=== PATIENT | male | born 1990 | race African-American/Black ===

== ENCOUNTER 2017-03-08 18:13 | Emergency (ER) | payer SELFPAY ==
[2017-03-08 18:20] VITALS: BP 133/71; PULSE 97; TEMP 97.6; BMI 24.4
--- NOTE | 2017-03-08 18:21 | PDOC ---
Rapid Medical Evaluation Chief Complaint: Pain Time Seen by Provider: 03/08/17 18:17 Medical Evaluation: Allergies Allergy/AdvReac Type Severity Reaction Status Date / Time Penicillins Allergy Mild Hives Verified 03/08/17 18:15 03/08/17 18:18 Pt presents to the ED with complaints of: left inguinal pain worsening, no risks for DVT, denies testicular pain On brief exam: vss, shaun wrap to area , FROm but with discomfort with straight leg raise Pt ordered for: none Pt to proceed to the ED 03/08/17 18:19 Discharge Disposition - Diagnosis Musculoskeletal pain of left thigh - Discharge Dispostion Disposition: HOME Condition at time of disposition: Good - Prescriptions Prescriptions: Cyclobenzaprine HCl [Flexeril 10 mg] 10 mg PO TID PRN #12 tablet PRN Reason: Muscle Spasms Cyclobenzaprine HCl [Flexeril -] 10 mg PO TID #12 tablet - Referrals Referrals: Patricio Zurita MD [Primary Care Provider] - Call tomorrow - Patient Instructions Printed Discharge Instructions: How To Perform RICE (Rest, Ice, Compress, Elevate), DI for Leg Pain, DI for Musculoskeletal Pain Additional Instructions: Discharge Instructions: -Take prescribed muscle relaxer if needed; may cause drowsiness -Follow RICE instructions -Return to the ER if you experience testicular swelling or pain, coughing up blood, shortness of breath, chest pain or any other concerning symptoms. - Post Discharge Activity
--- NOTE | 2017-03-08 18:50 | PDOC ---
History of Present Illness - General Chief Complaint: Pain Stated Complaint: PAIN Time Seen by Provider: 03/08/17 18:17 History Source: Patient Exam Limitations: No Limitations - History of Present Illness Initial Comments: CHIEF COMPLAINT: 26 y/o afebrile male with no significant PMH c/o atraumatic left upper leg/thigh pain x 3 days. HISTORY OF PRESENT ILLNESS: The patient also admits he felt some pulling near his left testicle with movement of his left leg. He denies f/c, n/v/d, CP, SOB , cough, hemoptysis, abd pain, back pain, saddle anesthesia, numbness/tingling in LEs, testicular swelling/erythema/elevation, penile discharge. He has taken motrin and percocet for his pain with little relief. Pt denies recent travel, smoking history, calf pain, redness/swelling to affected extremity. Vital signs on arrival are within normal limits. REVIEW OF SYSTEMS: GENERAL/CONSTITUTIONAL: No fever/chills. No weakness. No weight change. GENITOURINARY: No dysuria, frequency, or change in urination. MUSCULOSKELETAL: +left thigh pain. No neck or back pain. SKIN: No rash or easy bruising. NEUROLOGIC: No headache, vertigo, loss of consciousness, or loss of sensation. PHYSICAL EXAM: VITAL_SIGNS: within normal limits GENERAL_APPEARANCE: alert, cooperative, mild obvious discomfort. Patient is ambulating with a limp MENTAL_STATUS: speech clear, oriented X 3, responds appropriately to questions. NEURO: motor intact and sensory intact in injured extremity. EXTREMITIES: Pain with palpation of left proximal, medial quad muscle, as well as with palpation of left inguinal region. Pain with flexion and extension of left leg. No left calf pain/redness/swelling. Negative chapis's sign left leg. SCROTUM: No testicular erythema, edema, elevation. No inguinal hernias appreciated. Presence of cremasteric reflex b/l. SKIN: warm, dry, good color. Past History - Past Medical History Allergies/Adverse Reactions: Allergies Allergy/AdvReac Type Severity Reaction Status Date / Time Penicillins Allergy Mild Hives Verified 03/08/17 18:15 Home Medications: Ambulatory Orders No Home Medications 0 dose .ROUTE UTDICT 07/19/13 Cyclobenzaprine HCl [Flexeril -] 10 mg PO TID #12 tablet 03/08/17 COPD: No Psychiatric Problems: Yes (ANXIETY) - Suicide/Smoking/Psychosocial Hx Smoking History: Never smoked Have you smoked in the past 12 months: No Information on smoking cessation initiated: No Hx Alcohol Use: No Drug/Substance Use Hx: No Substance Use Type: None *Physical Exam - Vital Signs Last Vital Signs Temp Pulse Resp BP Pulse Ox 97.6 F 97 H 18 133/71 100 03/08/17 18:15 03/08/17 18:15 03/08/17 18:15 03/08/17 18:15 03/08/17 18:15 Medical Decision Making - Medical Decision Making A/P: 26 y/o male with what appears to be a muscular pain in his left upper thigh. Suggested a scrotal ultrasound to r/o torsion but the patient refused as he has no symptoms. Will treat with IM toradol and PO flexeril. Suggested he ice and stretch affected area and return to the ER with any worsening or concerning symptoms immediately. The patient verbalizes understanding of all instructions, has no further questions and is awaiting discharge. *DC/Admit/Observation/Transfer Diagnosis at time of Disposition: Musculoskeletal pain of left thigh - Discharge Dispostion Disposition: HOME Condition at time of disposition: Good - Referrals Referrals: Patricio Zurita MD [Primary Care Provider] - Call tomorrow - Patient Instructions Printed Discharge Instructions: DI for Leg Pain, DI for Musculoskeletal Pain, How To Perform RICE (Rest, Ice, Compress, Elevate) Additional Instructions: Discharge Instructions: -Take prescribed muscle relaxer if needed; may cause drowsiness -Follow RICE instructions -Return to the ER if you experience testicular swelling or pain, coughing up blood, shortness of breath, chest pain or any other concerning symptoms. - Post Discharge Activity
[2017-03-08] MEDS ORDERED: IBUPROFEN 400 MG TABLET (FP) PO ONE ×2 (19:03→19:12)
[2017-03-08] MEDS ORDERED: CYCLOBENZAPRINE HCL 5 MG TABLET PO SCH (19:15)
[2017-03-08] MEDS ORDERED: KETOROLAC TROMETHAMINE 60 MG/2 ML VIAL ONE (19:36)
[2017-03-08] MEDS ORDERED: CYCLOBENZAPRINE HCL 10 MG TABLET (FP) ONE (19:36)
[2017-03-08] MEDS: KETOROLAC TROMETHAMINE 60 MG/2 ML VIAL IM ONE ×2 (19:45→19:47)
== END 2017-03-08 20:16 | disposition home or self-care (01) ==
LOC: JERFT 18:13
PROC: 3E0233Z Introduction of Anti-inflammatory into Muscle, Percutaneous Approach (ICD-10-PCS; principal; 2017-03-08)
DX: M79.652 Pain in left thigh (principal)
CPT/HCPCS: 99281-25

== ENCOUNTER 2018-01-05 11:08 | Inpatient (IN) | payer BC, OTHER ==
[2018-01-05 11:37] VITALS: BMI 24.5
--- NOTE | 2018-01-05 11:55 | PDOC ---
History of Present Illness - General Chief Complaint: Pain Stated Complaint: SENT BY PCP Time Seen by Provider: 01/05/18 11:54 History Source: Patient - History of Present Illness Initial Comments: 01/05/18 12:01 The patient is a 27 year old male who presents c/o abdominal pain. Pain started late evening and initially was diffuse but now has radiated down to his RLQ. Pain is sharp, constant, 10/10 and localized to his RLQ. Notes he had multiple episodes of NBNB vomiting night and Saturday morning and then was constipated. Patient took an enema Saturday and has had soft and watery bowel movements since that time. Denies any fevers/chills, dysuria/hematuria, testicular/penile pain. Patient was evaluated at [facility] urgent care this morning and instructed to come to the ED. Patient provided additional history that he ate a lot of Halloween candy (mostly chocolate [place]es) prior to symptom onset evening. Last PO intake was last night. 10 point ROS is negative including no chest pain, shortness of breath, numbness/ tingling, headache, sore throat, cough. Allergy: Penicillin Surgical: hemmhroid resection Social: denies cigarettes, social alcohol, denies recreational drugs PMD: Dr. Simeon Meds: Truvada (PREP) As per EMR patient was evaluated in our ED in 03/2017 with left thigh pain, likely muscular strain. Past History - Past Medical History Allergies/Adverse Reactions: Allergies Allergy/AdvReac Type Severity Reaction Status Date / Time Penicillins Allergy Mild Hives Verified 01/05/18 11:31 Home Medications: Ambulatory Orders Emtricitabine/Tenofovir [Truvada] 1 tab PO DAILY 01/05/18 COPD: No Psychiatric Problems: Yes (ANXIETY) - Suicide/Smoking/Psychosocial Hx Smoking History: Never smoked Have you smoked in the past 12 months: No Hx Alcohol Use: No Drug/Substance Use Hx: No Substance Use Type: None Review of Systems - Review of Systems Constitutional: No: Chills, Fever HEENTM: No: Blurred Vision, Double Vision Respiratory: No: Cough, Shortness of Breath Cardiac (ROS): No: Chest Pain, Lightheadedness, Palpitations, Syncope ABD/GI: Yes: Abdominal cramping. No: Constipated, Diarrhea, Nausea, Vomiting : No: Burning, Dysuria *Physical Exam - Vital Signs Last Vital Signs Temp Pulse Resp BP Pulse Ox 98.8 F 99 H 20 132/70 99 01/05/18 11:28 01/05/18 11:28 01/05/18 11:28 01/05/18 11:28 01/05/18 11:28 - Physical Exam General Appearance: Yes: Nourished, Appropriately Dressed HEENT: positive: Normal Voice, Hearing Grossly Normal Neck: positive: Normal Thyroid, Supple. negative: Lymphadenopathy (R), Lymphadenopathy (L) Respiratory/Chest: positive: Lungs Clear, Normal Breath Sounds. negative: Crackles, Wheezing Cardiovascular: positive: S1, S2. negative: Edema, JVD Vascular Pulses: Dorsalis-Pedis (R): 2+, Doralis-Pedis (L): 2+ Gastrointestinal/Abdominal: positive: Normal Bowel Sounds, Soft, Tenderness ( RLQ TTP - no rebound, guarding). negative: Guarding, Rebound, Hernia, Mass Musculoskeletal: negative: CVA Tenderness (R), CVA Tenderness (L) Extremity: positive: Normal Capillary Refill, Normal Inspection Integumentary: positive: Normal Color, Dry, Warm ED Treatment Course - LABORATORY CBC & Chemistry Diagram: 01/05/18 12:25 01/05/18 12:25 Medical Decision Making - Medical Decision Making 01/05/18 12:03 27 year old male with RLQ abdominal pain. Resolved N/V. H/o ingestion of large amount of Halloween candy intake. VS unremarkable. PE significant for RLQ TPP. Differential Diagnosis includes acute appendicitis, cholecystitis, biliary colic, colitis, less likely pancreatitis, SBO, mesenteric ischemia given patient's age and presentation. Will obtain basic labs, lipase, bedside U /S. IV hydration. Patient declining pain medication at this time. 01/05/18 12:59 Bedside U/S shows no cholelithiasis, normal sized CBD. Appendix not visualized. Will obtain CT abdomen to r/o acute appy vs. colitis 01/05/18 13:08 01/05/18 13:[address] pending 01/05/18 13:56 WBC 12.8 - likely reactive leukocytosis 01/05/18 14:11 Case d/w radiology. No cholecystitis/cholelithiasis- notable R flank inflammation, cannot delineate R colon; appendix poorly visualized. Concern for retrocecal inflammation vs. acute appendicitis w/overlying phlegmon. Recommends repeat CT with oral contrast to better visual appendix. 01/05/18 14:38 Case d/w patient, agrees to CT w/contrast. VSS 01/05/18 17:08 Patient @ [address] 01/05/18 19:[address] Symptomatically improved. CT read pending 01/05/18 21:10 CT w/PO contrast show shows thickened tubular aspect @ cecum -- possibly a thickened appendix/appendicitis +/- phelgom, adjacent enlarged lymph nodes. Patient and patient's mother @ bedside counseled on plan of care General Surgery, Dr. Jorgensen, paged. 01/05/18 22:56 Dr. Jorgensen @ bedside. Will admit patient for further evaluation. Likely to OR tomorrow. Patient admitted to Dr. Perea. *DC/Admit/Observation/Transfer Diagnosis at time of Disposition: Abdominal pain Qualifiers: Abdominal location: periumbilical Qualified Code(s): R10.33 - Periumbilical pain - Discharge Dispostion Disposition: HOME Condition at time of disposition: Good - Referrals - Patient Instructions - Post Discharge Activity
--- NOTE | 2018-01-05 12:24 | PDOC ---
Attending Attestation - Resident Resident Name: Jeannie Fragoso - ED Attending Attestation I have performed the following: I have examined & evaluated the patient, The case was reviewed & discussed with the resident, I agree w/resident's findings & plan, Exceptions are as noted <GregPura - Last Filed: 01/05/18 12:24> - HPI HPI: 01/05/18 12:34 The patient is a 27 year old male with no significant PMH who presents to the emergency department with sharp abdominal pain for the past three days. Patient states he ate significant candy the day prior to the onset of his abdominal pain. Patient reports he also vomited 4-5 times since then. Patient took an enema and then had 2 episodes of loose stools. The patient denies chest pain, shortness of breath, headache and dizziness. Denies fever, chills, nausea, diarrhea and constipation. Denies dysuria, frequency, urgency and hematuria. Allergies: NKA Past surgical history: None reported. Social history: No reported alcohol, drug or cigarette use. PCP: Dr. Zurita <Sharona Real - Last Filed: 01/05/18 12:34>
[2018-01-05] MEDS ORDERED: SODIUM CHLORIDE 0.9% 500 ML INFUS.BAG IV ONE ×2 (12:25→21:27)
[2018-01-05 12:41] LABS: BASO % 0.5 % (0-2.0); EOS % 0.1 % (0-4.5); HEMATOCRIT 41.5 % (35.4-49); HEMOGLOBIN 14.6 GM/dL (11.7-16.9); LYMPH % 9.3 % (8-40); MCH 32.2 pg (25.7-33.7); MCHC 35.3 g/dl (32.0-35.9); MEAN CELL VOLUME 91.3 fl (80-96); MEAN PLT VOLUME 6.8 fl (7.5-11.1); MONO % 8.5 % (3.8-10.2); NEUT % 81.6 % (42.8-82.8); PLATELET COUNT 260 K/MM3 (134-434); RBC 4.54 M/mm3 (4.00-5.60); RDW 13.8 % (11.9-15.9); WHITE BLOOD COUNT 12.8 K/mm3 (4.0-10.0)
[2018-01-05 13:03] LABS: ALBUMIN 3.7 g/dl (3.4-5.0); ALK PHOS 67 U/L (45-117); ANION GAP 8 MMOL/L (8-16); BILIRUBIN,TOTAL 1.6 mg/dL (0.2-1); BLOOD UREA NITROGEN 9 mg/dL (7-18); CALCIUM 9.2 mg/dL (8.5-10.1); CHLORIDE 100 mmol/L (98-107); CO2 28 mmol/L (21-32); CREATININE 0.8 mg/dL (0.55-1.3); GLUCOSE,RANDOM 100 mg/dL (74-106); LIPASE 71 U/L (73-393); POTASSIUM 3.6 mmol/L (3.5-5.1); SGOT/AST 17 U/L (15-37); SGPT/ALT 20 U/L (13-61); SODIUM 135 mmol/L (136-145); TOT PROT 8.2 g/dl (6.4-8.2)
[2018-01-05 19:22] LABS: URINE APPEARANCE CLEAR; URINE BILIRUBIN NEGATIVE (<2.0 mg/dL); URINE COLOR LTYELLOW; URINE GLUCOSE (UA) NEGATIVE (NEGATIVE); URINE KETONE 2+ (NEGATIVE); URINE LEUK ESTERASE NEGATIVE (NEGATIVE); URINE NITRITE NEGATIVE (NEGATIVE); URINE PROTEIN NEGATIVE (NEGATIVE); URINE UROBILINOGEN 4.0 E.U/dl mg/dL (0.2-1.0)
[2018-01-05 23:41] LABS: INR 1.23 (0.83-1.09); PROTHROMBIN TIME (PATIENT) 14.5 SEC (9.7-13.0)
[2018-01-05] MEDS ORDERED: D5-1/2NS+20 MEQ KCL - 20 MEQ/1,000 ML INFUS.BAG IV SCH (23:45)
--- NOTE | 2018-01-05 23:45 | CONSULT ---
Consult Consult Specialty:: General Surgery Referred by:: Jeannie Fragoso Reason for Consultation:: appendicitis - History of Present Illness Chief Complaint: abdominal pain, n/v, f/c History of Present Illness: 27yo generally healthy M began having vague abdominal discomfort and feeling somewhat unwell on midday after having a lot of Halloween candy/ chocolate. He didn't think much of it at first, and then had central abdominal pain, getting worse that afternoon, followed by N/V of undigested food. He also noted that he felt like he had to move his bowels, but then had difficulty doing so, and thought he was constipated. He had a normal soft BM morning. The pain got worse over night into Saturday, and he still felt constipated, so Saturday night used an OTC Fleet's enema, with some results and some improvement in the pain and discomfort. Saturday he only had some soup and seltzer, not as much appetite. He also felt hot and cold, feverish, and Saturday. By Saturday, he was able to eat more, and was starting to feel a bit better, and noticed the pain radiated a bit more toward the RLQ. He had a bit more diarrhea, but no more fevers. Last night, though, he could not find a comfortable position to sleep in, the pain had come back, and was severe enough to go to Urgent Care this morning, where he was sent to ER to r/o appendicitis. In ER, he is afebrile, with wbc 12.8 left-shifted, and Tbili 1.6. K slightly low. CT was initially done with IV but no PO contrast, and showed inflammatory changes at the cecum but no clearly visualized enlarged appendix. It was repeated with PO but no IV contrast, showing cecal inflammation, some free fluid , and likely enlarged/inflamed appendix as well, possibly perforated, with phlegmon but no drainable abscess or free air. He is hungry, and ate a turkey sandwich between CT scans. Surgery was asked to assess. He is seen and examined in ER holding area with mother present. He indicates his pain is better right now, but still present, mostly RLQ. Had a soft/loose BM today. He expressed concern about his job obligations and being in the hospital, but also understands that leaving the hospital prior to discharge would be against medical advice. He has taken Tylenol several times over the last few days for the pain, with some effect. He has had IV fluids and no antibiotics yet. NPO from about 7:30pm. - History Source History Provided By: Patient Limitations to Obtaining History: No Limitations - Past Medical History Infectious Disease: Yes: STD's (anal condylomata) - Past Surgical History Past Surgical History: Yes: Upper Endoscopy Additional Surgical History: removal anyl condylomata - Alcohol/Substance Use Hx Alcohol Use: Yes (social) History of Substance Use: reports: None - Smoking History Smoking history: Never smoked Have you smoked in the past 12 months: No - Social History ADL: Independent Occupation: works for [employer] Home Medications - Allergies Allergies/Adverse Reactions: Allergies Allergy/AdvReac Type Severity Reaction Status Date / Time Penicillins Allergy Mild Hives Verified 01/05/18 11:31 - Home Medications Home Medications: Ambulatory Orders Emtricitabine/Tenofovir [Truvada] 1 tab PO DAILY 01/05/18 Family Disease History - Family Disease History Family History: Unremarkable (noncontributory) Review of Systems - Review of Systems Constitutional: reports: Chills (/Sat), Fever (/Sat), Loss of Appetite (Saturday) Eyes: reports: Other (wears contact lenses and sometimes glasses). denies: Recent Change in Vision HENT: reports: Nasal Congestion (some, with postnasal drip). denies: Difficult Swallowing, Throat Pain Neck: denies: Swollen Glands, Tenderness Cardiovascular: denies: Chest Pain, Palpitations Respiratory: denies: Cough, SOB Gastrointestinal: reports: Abdominal Pain (with hpi), Constipation (with hpi), Nausea (with hpi), Vomiting (with hpi). denies: Diarrhea, Rectal Bleeding, Vomiting Blood Genitourinary: denies: Burning, Dysuria Musculoskeletal: denies: Back Pain, Joint Pain, Muscle Pain Integumentary: denies: Change in Color, Rash Neurological: denies: Dizziness, Headache, Unsteady Gait Hematology/Lymphatic: denies: Easily Bruised, Excessive Bleeding Psychiatric: denies: Anxiety, Depression Physical Exam Vital Signs: Vital Signs Temperature 98.8 F 01/05/18 11:28 Pulse Rate 99 H 01/05/18 11:28 Respiratory Rate 20 01/05/18 11:28 Blood Pressure 132/70 01/05/18 11:28 O2 Sat by Pulse Oximetry (%) 99 01/05/18 11:28 Constitutional: Yes: Well Nourished, No Distress, Calm Eyes: Yes: Conjunctiva Clear, EOM Intact HENT: Yes: Atraumatic, Normocephalic Neck: Yes: Supple, Trachea Midline Cardiovascular: Yes: Regular Rate and Rhythm, Tachycardia (slight) Respiratory: Yes: Regular, CTA Bilaterally Gastrointestinal: Yes: Normal Bowel Sounds, Soft, Tenderness (RLQ and laterally to R side, much less RUQ). No: Distention, Tenderness, Epigastrium ...Rectal Exam: Yes: Deferred Renal/: No: CVA Tenderness - Left, CVA Tenderness - Right Musculoskeletal: No: Joint Stiffness, Joint Swelling Extremities: No: Cool, Cyanosis Edema: No Peripheral Pulses WNL: Yes Integumentary: Yes: Tattoos. No: Jaundice, Rash Neurological: Yes: Alert, Oriented. No: Unsteady Gait Psychiatric: Yes: Alert, Oriented Labs: CBC, BMP 01/05/18 12:25 01/05/18 12:25 CMP Sodium 135 mmol/L (136-145) L 01/05/18 12:25 Potassium 3.6 mmol/L (3.5-5.1) 01/05/18 12:25 Chloride 100 mmol/L (98-107) 01/05/18 12:25 Carbon Dioxide 28 mmol/L (21-32) 01/05/18 12:25 Anion Gap 8 MMOL/L (8-16) 01/05/18 12:25 BUN 9 mg/dL (7-18) 01/05/18 12:25 Creatinine 0.8 mg/dL (0.55-1.3) 01/05/18 12:25 Creat Clearance w eGFR > 60 (>60) 01/05/18 12:25 Random Glucose 100 mg/dL (74-106) 01/05/18 12:25 Calcium 9.2 mg/dL (8.5-10.1) 01/05/18 12:25 Total Bilirubin 1.6 mg/dL (0.2-1) H 01/05/18 12:25 AST 17 U/L (15-37) 01/05/18 12:25 ALT 20 U/L (13-61) 01/05/18 12:25 Alkaline Phosphatase 67 U/L (45-117) 01/05/18 12:25 Total Protein 8.2 g/dl (6.4-8.2) 01/05/18 12:25 Albumin 3.7 g/dl (3.4-5.0) 01/05/18 12:25 Lipase 71 U/L (73-393) L 01/05/18 12:25 INR, PTT INR 1.23 (0.83-1.09) H 01/05/18 23:00 Urine Test Results Urine Color Ltyellow 01/05/18 19:15 Urine Appearance Clear 01/05/18 19:15 Urine pH 6.0 (5.0-8.0) 01/05/18 19:15 Ur Specific [place] 1.021 (1.010-1.035) 01/05/18 19:15 Urine Protein Negative (NEGATIVE) 01/05/18 19:15 Urine Glucose (UA) Negative (NEGATIVE) 01/05/18 19:15 Urine Ketones 2+ (NEGATIVE) H 01/05/18 19:15 Urine Blood Negative (NEGATIVE) 01/05/18 19:15 Urine Nitrite Negative (NEGATIVE) 01/05/18 19:15 Urine Bilirubin Negative (<2.0 mg/dL) 01/05/18 19:15 Ur Leukocyte Esterase Negative (NEGATIVE) 01/05/18 19:15 Imaging - Results Cat Scan: Report Reviewed, Image Reviewed (images from both CT's reviewed - significant inflammation of cecum with phlegmon, small free fluid, possible enlarged appendix adjacent, difficult to distinguish, no obstruction, no free air, no abel abscess) Problem List - Problems (1) Acute appendicitis with perforation and localized peritonitis, without abscess Assessment/Plan: admitted to medicine NPO/IVF except truvada with sips pain meds prn, nonnarcotics first line IV abx per ID, Levo/Flagyl per Dr. Zurita trend labs serial exams pending clinical course, may need to reimage in few days with po/iv contrast if improving, would plan to resume po when pain/tenderness are gone and complete abx course at home if not improving or deteriorating, would reimage as above - perc drainage if organized abscess develops, consider operative intervention if indicated otherwise explained to pt and mother that he would likely be at least 48-72 hrs in hospital discussed with Dr. Zurita and Dr. Perea Code(s): K35.32 - ACUTE APPENDICITIS WITH PERF AND LOC PERITONITIS, W/O ABSCS Qualifiers: Appendicitis gangrene presence: unspecified whether gangrene present Qualified Code(s): K35.32 - Acute appendicitis with perforation and localized peritonitis, without abscess (2) RLQ abdominal pain Code(s): R10.31 - RIGHT LOWER QUADRANT PAIN (3) Nausea and vomiting Code(s): R11.2 - NAUSEA WITH VOMITING, UNSPECIFIED Qualifiers: Vomiting type: unspecified Vomiting Intractability: non-intractable Qualified Code(s): R11.2 - Nausea with vomiting, unspecified (4) Other elevated white blood cell count Code(s): D72.828 - OTHER ELEVATED WHITE BLOOD CELL COUNT
[2018-01-05] MEDS ORDERED: ACETAMINOPHEN 1000 MG/100 ML VIAL (NON FORMULARY) IVPB PRN (23:48)
[2018-01-05] MEDS ORDERED: MORPHINE SULFATE 2 MG/ML VIAL IVPUSH PRN (23:48)
--- NOTE | 2018-01-06 00:08 | HP ---
Admitting History and Physical - Admission History of Present Illness: The patient is a 27 year old male with no significant PMH who presents to the emergency department with sharp abdominal pain for the past three days. Patient states he ate significant candy the day prior to the onset of his abdominal pain. Patient reports he also vomited 4-5 times since then. Patient took an enema and then had 2 episodes of loose stools. The patient denies chest pain, shortness of breath, headache and dizziness. Denies fever, chills, nausea, diarrhea and constipation. Denies dysuria, frequency, urgency and hematuria. History Source: Patient, Medical Record Limitations to Obtaining History: No Limitations - Past Medical History Infectious Disease: Yes: STD's (anal condylomata) - Past Surgical History Past Surgical History: Yes: Upper Endoscopy - Smoking History Smoking history: Never smoked Have you smoked in the past 12 months: No - Alcohol/Substance Use Hx Alcohol Use: Yes (social) History of Substance Use: reports: None - Social History ADL: Independent Occupation: works for [employer] Home Medications - Allergies Allergies/Adverse Reactions: Allergies Allergy/AdvReac Type Severity Reaction Status Date / Time Penicillins Allergy Mild Hives Verified 01/05/18 11:31 - Home Medications Home Medications: Ambulatory Orders Emtricitabine/Tenofovir [Truvada] 1 tab PO DAILY 01/05/18 Review of Systems - Review of Systems Constitutional: reports: Malaise HENT: reports: No Symptoms Neck: reports: No Symptoms Cardiovascular: reports: No Symptoms Gastrointestinal: reports: Abdominal Pain, Indigestion, Vomiting. denies: Rectal Bleeding Genitourinary: reports: No Symptoms Breasts: reports: No Symptoms Reported Musculoskeletal: reports: No Symptoms Integumentary: reports: No Symptoms Neurological: reports: No Symptoms Endocrine: reports: No Symptoms Hematology/Lymphatic: reports: No Symptoms Psychiatric: reports: No Symptoms Physical Examination Vital Signs: Vital Signs Temperature 98.8 F 01/05/18 11:28 Pulse Rate 99 H 01/05/18 11:28 Respiratory Rate 20 01/05/18 11:28 Blood Pressure 132/70 01/05/18 11:28 O2 Sat by Pulse Oximetry (%) 99 01/05/18 11:28 Labs: CBC, BMP 01/05/18 12:25 01/05/18 12:25 Problem List - Problems (1) Abdominal pain Code(s): R10.9 - UNSPECIFIED ABDOMINAL PAIN Qualifiers: Abdominal location: periumbilical Qualified Code(s): R10.33 - Periumbilical pain
[2018-01-06 06:12] LABS: BASO % 0.4 % (0-2.0); EOS % 0.7 % (0-4.5); HEMATOCRIT 37.9 % (35.4-49); HEMOGLOBIN 13.3 GM/dL (11.7-16.9); LYMPH % 15.6 % (8-40); MCH 32.2 pg (25.7-33.7); MEAN CELL VOLUME 91.8 fl (80-96); MONO % 10.4 % (3.8-10.2); NEUT % 72.9 % (42.8-82.8); PLATELET COUNT 248 K/MM3 (134-434); RBC 4.13 M/mm3 (4.00-5.60); RDW 13.8 % (11.9-15.9); WHITE BLOOD COUNT 9.4 K/mm3 (4.0-10.0)
[2018-01-06 06:37] LABS: ANION GAP 7 MMOL/L (8-16); BLOOD UREA NITROGEN 7 mg/dL (7-18); CALCIUM 8.1 mg/dL (8.5-10.1); CHLORIDE 104 mmol/L (98-107); CO2 28 mmol/L (21-32); CREATININE 0.7 mg/dL (0.55-1.3); GLUCOSE,RANDOM 115 mg/dL (74-106); MAGNESIUM 2.4 mg/dL (1.8-2.4); POTASSIUM 3.7 mmol/L (3.5-5.1); SODIUM 139 mmol/L (136-145)
--- NOTE | 2018-01-06 13:01 | PN ---
Progress Note, Physician History of Present Illness: Pt with perforated appendicitis with phlegmon but no drainable abscess. Started IV antibiotics last night, NPO/IVF except ok for Truvada to continue. Levo/ Flagyl per Dr. Zurita, ID secondary to PCN allergy. WBC down today, pain is less. Has not needed pain meds. Having BMs, loose from enteral contrast yesterday. No nausea, no fever. - Current Medication List Current Medications: Active Medications Acetaminophen (Ofirmev Injection -) 1,000 mg IVPB Q6H PRN PRN Reason: Pain Level 4 - 10 Potassium Chloride/Dextrose/Sod Cl (D5-1/2ns+20 Meq Kcl -) 20 meq in 1,000 mls @ 125 mls/hr IV ASDIR RANDALL Last Admin: 01/06/18 01:02 Dose: 125 mls/hr Metronidazole (Flagyl 500mg Premixed Ivpb -) 500 mg in 100 mls @ 100 mls/hr IVPB Q8H-IV RANDALL Last Admin: 01/06/18 10:10 Dose: 100 mls/hr Morphine Sulfate (Morphine Sulfate) 2 mg IVPUSH Q4H PRN PRN Reason: Pain Level 8 - 10 BREAKTHROUGH - Objective Vital Signs: Vital Signs Temperature 98.4 F 01/06/18 11:58 Pulse Rate 82 01/06/18 11:58 Respiratory Rate 16 01/06/18 11:58 Blood Pressure 108/52 L 01/06/18 11:58 O2 Sat by Pulse Oximetry (%) 100 01/06/18 11:58 Vital Signs Period Temp Pulse Resp BP Sys/Ho Pulse Ox Last 24 Hr 98.4 F-98.4 F 78-82 16-16 108-125/52-74 98-100 Constitutional: Yes: Well Nourished, No Distress, Calm Eyes: Yes: Conjunctiva Clear, EOM Intact HENT: Yes: Atraumatic, Normocephalic Gastrointestinal: Yes: Soft, Tenderness (less in RLQ, R flank/lateral, no R/G). No: Distention ...Rectal Exam: Yes: Deferred Musculoskeletal: No: Joint Stiffness, Joint Swelling Extremities: No: Cool, Cyanosis Integumentary: Yes: Tattoos. No: Jaundice, Rash Neurological: Yes: Alert, Oriented Labs: CBC, BMP 01/06/18 06:00 11/05/18 06:00 wbc down from 12.8 Problem List - Problems (1) Acute appendicitis with perforation and localized peritonitis, without abscess Assessment/Plan: admitted to medicine NPO/IVF except truvada with sips pain meds prn, nonnarcotics first line IV abx per ID, Levo/Flagyl per Dr. Zurita - ordered 500mg daily/500mg tid trend labs serial exams pending clinical course, may need to reimage in few days with po/iv contrast if improving after 48 hrs IV abx at least, would plan to resume po when pain/ tenderness are gone and complete abx course at home if not improving or deteriorating, would reimage as above - perc drainage if organized abscess develops, consider operative intervention if indicated otherwise discussed with Dr. Perea Code(s): K35.32 - ACUTE APPENDICITIS WITH PERF AND LOC PERITONITIS, W/O ABSCS Qualifiers: Appendicitis gangrene presence: unspecified whether gangrene present Qualified Code(s): K35.32 - Acute appendicitis with perforation and localized peritonitis, without abscess (2) RLQ abdominal pain Assessment/Plan: improving Code(s): R10.31 - RIGHT LOWER QUADRANT PAIN (3) Nausea and vomiting Assessment/Plan: resolved Code(s): R11.2 - NAUSEA WITH VOMITING, UNSPECIFIED Qualifiers: Vomiting type: unspecified Vomiting Intractability: non-intractable Qualified Code(s): R11.2 - Nausea with vomiting, unspecified (4) Other elevated white blood cell count Assessment/Plan: decreased Code(s): D72.828 - OTHER ELEVATED WHITE BLOOD CELL COUNT
--- NOTE | 2018-01-06 17:29 | PN ---
Progress Note (short form) - Note Progress Note: patient seen and examined in ER holding area Has remained NPO clinically appears comfortable - no distress + hungry / abdominal pain has resolved / + BM Vital Signs Period Temp Pulse Resp BP Sys/Ho Pulse Ox Last 24 Hr 98.4 F-99.6 F 74-82 16-18 107-125/52-74 98-100 lungs clear bilat abd soft / BS + / guarding on right lower flank ++ fullness with tenderness palpable ext no edema / FROM / + 2 pulses CBC, BMP 01/06/18 06:00 01/06/18 06:00 Active Medications Acetaminophen (Ofirmev Injection -) 1,000 mg IVPB Q6H PRN PRN Reason: Pain Level 4 - 10 Emtricitabine/Tenofovir (Truvada) 1 tab PO DAILY RANDALL Potassium Chloride/Dextrose/Sod Cl (D5-1/2ns+20 Meq Kcl -) 20 meq in 1,000 mls @ 125 mls/hr IV ASDIR RANDALL Last Admin: 01/06/18 01:02 Dose: 125 mls/hr Metronidazole (Flagyl 500mg Premixed Ivpb -) 500 mg in 100 mls @ 100 mls/hr IVPB Q8H-IV RANDALL Last Admin: 01/06/18 10:10 Dose: 100 mls/hr Levofloxacin (Levaquin 500 Mg Premixed Ivpb -) 500 mg in 100 mls @ 100 mls/hr IVPB DAILY RANDALL; Protocol Morphine Sulfate (Morphine Sulfate) 2 mg IVPUSH Q4H PRN PRN Reason: Pain Level 8 - 10 BREAKTHROUGH # abdominal pain unable to exclude appendicitis await surgical follow up continue NPO / IV abx would benefit from follow up CT #Continue home meds Problem List - Problems (1) Abdominal pain Code(s): R10.9 - UNSPECIFIED ABDOMINAL PAIN Qualifiers: Abdominal location: periumbilical Qualified Code(s): R10.33 - Periumbilical pain
[2018-01-06] MEDS: D5-1/2NS+20 MEQ KCL - 20 MEQ/1,000 ML INFUS.BAG IV SCH (17:36)
[2018-01-07] MEDS: D5-1/2NS+20 MEQ KCL - 20 MEQ/1,000 ML INFUS.BAG IV SCH ×2 (02:13→13:19)
--- NOTE | 2018-01-07 08:25 | CON.ID ---
Consult Consult Specialty:: Infectious Diseases Reason for Consultation:: Antibiotic Recommendations - History of Present Illness Chief Complaint: Abdominal Pain History of Present Illness: The patient is a 27 year old male who presents c/o abdominal pain. Pain started late evening and initially was diffuse but now has radiated down to his RLQ. Pain is sharp, constant, 10/10 and localized to his RLQ. Notes he had multiple episodes of NBNB vomiting night and Saturday morning and then was constipated. Patient took an enema Saturday and has had soft and watery bowel movements since that time. Denies any fevers/chills, dysuria/hematuria, testicular/penile pain. Patient was evaluated at [facility] urgent care this morning and instructed to come to the ED. In the ED, noted with mild leukocytosis, w/up including CT Scan A/P (oral contrast) showed cecal inflammation. Surgery evaluation noted. - History Source History Provided By: Patient Limitations to Obtaining History: No Limitations - Past Medical History Infectious Disease: Yes: STD's (anal condylomata) Additional Medical History: on PrEP (Truvada) - Past Surgical History Past Surgical History: Yes: Upper Endoscopy Additional Surgical History: removal anal condylomata - Alcohol/Substance Use Hx Alcohol Use: No History of Substance Use: reports: None - Smoking History Smoking history: Never smoked Have you smoked in the past 12 months: No - Social History ADL: Independent Occupation: works for [employer] Home Medications - Allergies Allergies/Adverse Reactions: Allergies Allergy/AdvReac Type Severity Reaction Status Date / Time Penicillins Allergy Mild Hives Verified 01/05/18 11:31 - Home Medications Home Medications: Ambulatory Orders Emtricitabine/Tenofovir [Truvada] 1 tab PO DAILY 01/05/18 Review of Systems - Review of Systems Constitutional: denies: Chills, Fever HENT: denies: Difficult Swallowing Cardiovascular: denies: Chest Pain, Palpitations Respiratory: denies: Cough, SOB Gastrointestinal: reports: Abdominal Pain, Bloating Physical Exam Vital Signs: Vital Signs Temperature 97.9 F 01/07/18 05:00 Pulse Rate 78 01/07/18 05:00 Respiratory Rate 20 01/07/18 05:00 Blood Pressure 136/62 01/07/18 05:00 O2 Sat by Pulse Oximetry (%) 100 01/06/18 21:00 Constitutional: Yes: Well Nourished, No Distress, Calm Eyes: Yes: Conjunctiva Clear HENT: Yes: Atraumatic Neck: Yes: Supple Cardiovascular: Yes: Regular Rate and Rhythm Respiratory: Yes: Regular, CTA Bilaterally Gastrointestinal: Yes: Normal Bowel Sounds, Soft, Tenderness, Tenderness, Rebound ...Rectal Exam: Yes: Deferred Labs: CBC, BMP 01/06/18 06:00 01/06/18 06:00 Imaging - Results Chest X-ray: Report Reviewed Cat Scan: Report Reviewed, Image Reviewed Assessment/Plan Abdominal Pain Appendicitis - Perforated without abscess PCN Allergy Rx Levaquin 500 mg QD Metronidazole 500 mg IV Q [address] Scan Surgical intervention may be needed based on repeat CT.
[2018-01-07 08:43] LABS: INR 1.28 (0.83-1.09); PROTHROMBIN TIME (PATIENT) 15.2 SEC (9.7-13.0)
[2018-01-07] MEDS ORDERED: PT OWN MED DRAWER 7, Y5N ONE ×2 (09:10→21:14)
[2018-01-07 09:53] LABS: BASO % 0.4 % (0-2.0); EOS % 1.6 % (0-4.5); HEMATOCRIT 36.9 % (35.4-49); HEMOGLOBIN 12.9 GM/dL (11.7-16.9); LYMPH % 17.1 % (8-40); MCH 32.1 pg (25.7-33.7); MCHC 34.9 g/dl (32.0-35.9); MEAN CELL VOLUME 91.9 fl (80-96); MEAN PLT VOLUME 7.6 fl (7.5-11.1); MONO % 10.6 % (3.8-10.2); NEUT % 70.3 % (42.8-82.8); PLATELET COUNT 274 K/MM3 (134-434); RBC 4.02 M/mm3 (4.00-5.60); RDW 13.3 % (11.9-15.9)
[2018-01-07] MEDS ORDERED: [UNRECOGNIZED DRUG - OTHER] PO SCH (10:00)
[2018-01-07] MEDS ORDERED: EMTRICITABINE PO SCH (10:00)
[2018-01-07 10:01] LABS: ANION GAP 6 MMOL/L (8-16); BLOOD UREA NITROGEN 5 mg/dL (7-18); CALCIUM 8.5 mg/dL (8.5-10.1); CHLORIDE 105 mmol/L (98-107); CO2 25 mmol/L (21-32); CREATININE 0.7 mg/dL (0.55-1.3); GLUCOSE,RANDOM 125 mg/dL (74-106); MAGNESIUM 2.1 mg/dL (1.8-2.4); POTASSIUM 4.2 mmol/L (3.5-5.1); SODIUM 136 mmol/L (136-145)
[2018-01-07 11:56] LABS: ANISOCYTOSIS 0; MACROCYTOSIS 0; PLATELET ESTIMATE NORMAL
--- NOTE | 2018-01-07 12:06 | PN ---
Progress Note (short form) - Note Progress Note: patient seen and examined in ER holding area Has remained NPO clinically appears comfortable - no distress + hungry / abdominal pain has resolved / + BM -- reprts as brown and "back to normal" denies fever / chills Vital Signs Period Temp Pulse Resp BP Sys/Ho Pulse Ox Last 24 Hr 97.9 F-99.6 F 67-79 18-20 104-136/58-67 100-100 lungs clear bilat abd soft / BS + / guarding on right lower flank ++ fullness with tenderness palpable ext no edema / FROM / + 2 pulses CBC, BMP 01/07/18 06:10 01/07/18 06:10 CBC, BMP 01/06/18 06:00 01/06/18 06:00 Active Medications Acetaminophen (Ofirmev Injection -) 1,000 mg IVPB Q6H PRN PRN Reason: Pain Level 4 - 10 Emtricitabine/Tenofovir (Truvada) 1 tab PO DAILY RANDALL Last Admin: 01/07/18 09:53 Dose: Not Given Metronidazole (Flagyl 500mg Premixed Ivpb -) 500 mg in 100 mls @ 100 mls/hr IVPB Q8H-IV RANDALL Last Admin: 01/07/18 09:52 Dose: 100 mls/hr Levofloxacin (Levaquin 500 Mg Premixed Ivpb -) 500 mg in 100 mls @ 100 mls/hr IVPB DAILY RANDALL; Protocol Last Admin: 01/07/18 09:52 Dose: 100 mls/hr Potassium Chloride/Dextrose/Sod Cl (D5-1/2ns+20 Meq Kcl -) 20 meq in 1,000 mls @ 150 mls/hr IV ASDIR RANDALL Last Admin: 01/07/18 02:13 Dose: 150 mls/hr Morphine Sulfate (Morphine Sulfate) 2 mg IVPUSH Q4H PRN PRN Reason: Pain Level 8 - 10 BREAKTHROUGH # abdominal pain unable to exclude appendicitis await surgical follow up continue NPO / IV abx CT today # HIV Continue home meds PO meds with sips of water Problem List - Problems (1) Abdominal pain Code(s): R10.9 - UNSPECIFIED ABDOMINAL PAIN Qualifiers: Abdominal location: periumbilical Qualified Code(s): R10.33 - Periumbilical pain
[2018-01-07] MEDS ORDERED: ONDANSETRON 4 MG/2 ML VIAL IVPUSH ONE (15:03)
--- NOTE | 2018-01-07 15:11 | PN ---
Progress Note, Physician History of Present Illness: Pt with perforated appendicitis with phlegmon but no drainable abscess. Started IV antibiotics almost 48 hrs ago, NPO/IVF except ok for Truvada to continue. Levo/Flagyl per Dr. Zurita, ID secondary to PCN allergy. WBC down to normal. Pain not worse, but more sore and uncomfortable in right flank/back today than yesterday, has not needed pain meds. Having BMs, still loose from enteral contrast. No fever, but some nausea today. [place] better yesterday overall. Not sleeping well. Would like to leave tonight if able to per surg and ID. - Current Medication List Current Medications: Active Medications Acetaminophen (Ofirmev Injection -) 1,000 mg IVPB Q6H PRN PRN Reason: Pain Level 4 - 10 Emtricitabine/Tenofovir (Truvada) 1 tab PO DAILY RANDALL Last Admin: 01/07/18 09:53 Dose: Not Given Metronidazole (Flagyl 500mg Premixed Ivpb -) 500 mg in 100 mls @ 100 mls/hr IVPB Q8H-IV RANDALL Last Admin: 01/07/18 09:52 Dose: 100 mls/hr Levofloxacin (Levaquin 500 Mg Premixed Ivpb -) 500 mg in 100 mls @ 100 mls/hr IVPB DAILY RANDALL; Protocol Last Admin: 01/07/18 09:52 Dose: 100 mls/hr Potassium Chloride/Dextrose/Sod Cl (D5-1/2ns+20 Meq Kcl -) 20 meq in 1,000 mls @ 150 mls/hr IV ASDIR RANDALL Last Admin: 01/07/18 13:19 Dose: 150 mls/hr Morphine Sulfate (Morphine Sulfate) 2 mg IVPUSH Q4H PRN PRN Reason: Pain Level 8 - 10 BREAKTHROUGH Ondansetron HCl (Zofran Injection) 4 mg IVPUSH ONCE ONE Stop: 01/07/18 15:04 - Objective Vital Signs: Vital Signs Temperature 98.2 F 01/07/18 13:30 Pulse Rate 79 01/07/18 13:30 Respiratory Rate 20 01/07/18 13:30 Blood Pressure 113/60 01/07/18 13:30 O2 Sat by Pulse Oximetry (%) 100 01/07/18 09:00 Constitutional: Yes: Well Nourished, No Distress, Calm Eyes: Yes: Conjunctiva Clear, EOM Intact HENT: Yes: Atraumatic, Normocephalic Gastrointestinal: Yes: Soft, Tenderness (mild/minimal RLQ/flank/side with mild fullness, better than Saturday, slightly more posterior than yesterday). No: Distention, Tenderness, Epigastrium, Tenderness, Rebound ...Rectal Exam: Yes: Deferred Musculoskeletal: No: Joint Stiffness, Joint Swelling Extremities: No: Cool, Cyanosis Integumentary: Yes: Tattoos. No: Jaundice, Rash Neurological: Yes: Alert, Oriented Labs: CBC, BMP 01/07/18 06:10 01/07/18 06:10 INR, PTT INR 1.28 (0.83-1.09) H 01/07/18 06:10 wbc down to normal lytes ok well hydrated - ....Imaging Cat Scan: Pending Problem List - Problems (1) Acute appendicitis with perforation and localized peritonitis, without abscess Assessment/Plan: feeling less well than yesterday, though pain not increasing NPO/IVF except truvada with sips Levo/Flagyl per ID, Dr. Zurita - saw him this am per pt serial exams will repeat CT with PO/IV contrast if improvement in inflammation, will resume po and plan to complete abx course at home if ok with Dr. Zuirta if abscess present, would have IR do perc drain in am encouraged pt to stay until cleared for home by all and safe to do so he plans to consider f/u with his PMD/previous surgeon's group, who could do interval appendectomy as well will f/u CT tonight discussed with Dr. Bryan, radiology will discuss with Dr. Perea Code(s): K35.32 - ACUTE APPENDICITIS WITH PERF AND LOC PERITONITIS, W/O ABSCS Qualifiers: Appendicitis gangrene presence: unspecified whether gangrene present Qualified Code(s): K35.32 - Acute appendicitis with perforation and localized peritonitis, without abscess (2) RLQ abdominal pain Assessment/Plan: improving but still present Code(s): R10.31 - RIGHT LOWER QUADRANT PAIN (3) Nausea and vomiting Assessment/Plan: zofran now, prn if needed Code(s): R11.2 - NAUSEA WITH VOMITING, UNSPECIFIED Qualifiers: Vomiting type: unspecified Vomiting Intractability: non-intractable Qualified Code(s): R11.2 - Nausea with vomiting, unspecified (4) Other elevated white blood cell count Assessment/Plan: resolved Code(s): D72.828 - OTHER ELEVATED WHITE BLOOD CELL COUNT
[2018-01-07 19:06] VITALS: BP 120/67; PULSE 58; TEMP 98.8
--- NOTE | 2018-01-07 20:49 | DS ---
Physical Examination Vital Signs: Vital Signs Temperature 98.8 F 01/07/18 19:05 Pulse Rate 58 L 01/07/18 19:05 Respiratory Rate 20 01/07/18 19:05 Blood Pressure 120/67 01/07/18 19:05 O2 Sat by Pulse Oximetry (%) 100 01/07/18 09:00 Findings/Remarks: The patient is a 27 year old male with no significant PMH who presents to the emergency department with sharp abdominal pain for the past three days. Patient states he ate significant candy the day prior to the onset of his abdominal pain. Patient reports he also vomited 4-5 times since then. Patient took an enema and then had 2 episodes of loose stools. The patient denies chest pain, shortness of breath, headache and dizziness. Denies fever, chills, nausea, diarrhea and constipation. Denies dysuria, frequency, urgency and hematuria. patient was admitted for observation -- kept NPO with surgical follow up. Per Surgical note: Pt with perforated appendicitis with phlegmon but no drainable abscess. Started IV antibiotics almost 48 hrs ago, NPO/IVF except ok for Truvada to continue. Levo/Flagyl per Dr. Zurita, ID secondary to PCN allergy. WBC down to normal. Pain not worse, but more sore and uncomfortable in right flank/back today than yesterday, has not needed pain meds. Having BMs, still loose from enteral contrast. No fever, but some nausea today. [place] better yesterday overall. Not sleeping well. Patient for discharge today and will have follow up with PCP ( Dr Zurita ) Constitutional: Yes: Well Nourished, No Distress, Calm, Anxious Eyes: Yes: WNL, Conjunctiva Clear, EOM Intact HENT: Yes: Atraumatic, Normocephalic Neck: Yes: Supple, Trachea Midline Cardiovascular: Yes: WNL, Regular Rate and Rhythm Respiratory: Yes: WNL, Regular, CTA Bilaterally Gastrointestinal: Yes: WNL, Normal Bowel Sounds, Soft, Palpable Mass (right lower quadrant), Tenderness ...Rectal Exam: Yes: Deferred Renal/: Yes: WNL Breast(s): Yes: WNL Musculoskeletal: Yes: WNL Extremities: Yes: WNL Edema: No Peripheral Pulses WNL: Yes Integumentary: Yes: WNL Neurological: Yes: Alert, Oriented ...Motor Strength: WNL Psychiatric: Yes: WNL Labs: CBC, BMP 01/07/18 06:10 01/07/18 06:10 Discharge Summary Reason For Visit: APPENDICITIS Current Active Problems Abdominal pain (Acute) Acute appendicitis with perforation and localized peritonitis, without abscess ( Acute) Nausea and vomiting (Acute) Other elevated white blood cell count (Acute) RLQ abdominal pain (Acute) Condition: Good - Instructions Diet, Activity, Other Instructions: You were evaluated today for your abdominal pain. CT scans of your abdomen showed inflammation of your colon and probable perforated appendicitis with phlegmon but no abscess. We are prescribing two antibiotics, please complete the entire antibiotic course to prevent resistance. Follow up with your primary care doctor in the next 48 hours. If you are unable to see the doctor in the next 48 hours, please make an appointment with Richard Farfan for further evaluation. We have also provided a referral to a steam meter reader. Please make an evaluation within the next 1 week. Return to the Emergency Department for any new/worsening/concerning symptoms including increased pain, fevers, vomiting as you may need to be evaluated for acute appendicitis or appendiceal abscess. Referrals: Richard Russell MD [Staff Physician] - Patricio Zurita MD [Primary Care Provider] - Lito Sloan DO [Staff Physician] - - Home Medications Comprehensive Discharge Medication List: Ambulatory Orders Emtricitabine/Tenofovir [Truvada -] 1 tab PO DAILY 01/05/18 Levofloxacin [Levaquin] 500 mg PO DAILY 14 Days #14 tablet 01/07/18 metroNIDAZOLE [Flagyl -] 500 mg PO DAILY #42 tablet 01/07/18
== END 2018-01-07 21:30 | disposition home or self-care (01) | DRG 373 ==
LOC: JER 11:08 → JERBED 23:02 → J7W 01-06 17:55
PROVIDERS: ADMIT Family Medicine; ATTEND Family Medicine
DX: K35.32 Acute appendicitis with perforation, localized peritonitis, and gangrene, without abscess (principal); R11.2 Nausea with vomiting, unspecified; D72.828 Other elevated white blood cell count; Z88.0 Allergy status to penicillin
CPT/HCPCS: 36415; 74176-TC; 74177-TC; 80048; 80053; 81003; 83690; 83735; 85025; 85610; 85730; 86850; 86900; 86901; 87086; 99285-25